=== PATIENT | male | born 1955 | race Caucasian/White ===

== ENCOUNTER 2016-09-15 17:13 | Emergency (ER) | payer OTHER ==
[2016-09-15] MEDS ORDERED: ASPIRIN 81 MG CHEWABLE TAB ONE (17:31)
--- NOTE | 2016-09-15 17:35 | CPEKG ---
Heart Rate: 49 RR Interval: 1224 P-R Interval: 188 QRSD Interval: 90 QT Interval: 452 QTC Interval: 409 P Mio: 22 QRS Mio: 15 T Wave Mio: 109 EKG Severity - OTHERWISE NORMAL ECG - EKG Impression: SINUS BRADYCARDIA Electronically Signed By: Romulo Tay 15-Sep-2016 17:46:30
--- NOTE | 2016-09-15 17:46 | UCPHY ---
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 They began at about 4:45 this evening while he was driving and lasted for about 15 minutes. He is now asymptomatic. He denies history of cardiac disease. He does not take any medications. he states that he had some mild chest pain several years ago but his primary Dr. Zuñiga felt that it was likely musculoskeletal. He has not had any fevers or recent infections. He denies shortness of breath associated with this episode tonight. No nausea, diaphoresis or vomiting. He did have some mild lightheadedness. No history of GERD, no abdominal pain. REVIEW OF SYSTEMS: Constitutional: denies: chills, fever, recent illness, recent injury EENTM: denies: blurred vision, double vision, nose congestion Respiratory: denies: cough, shortness of breath Cardiac: See HPI Gastrointestinal/Abdominal: denies: abdominal pain, diarrhea, nausea, vomiting, blood streaked stools Genitourinary: denies: dysuria, frequency, hematuria, pain Musculoskeletal: denies: joint pain, muscle pain Skin: denies: lesions, rash, jaundice, bruising Neurological: denies: headache, numbness, paresthesia, tingling, dizziness, weakness Hematologic/Lymphatic: denies: blood clots, easy bleeding, easy bruising Immunologic/allergic: denies: HIV/AIDS, transplant EXAM: GENERAL: Well-appearing, well-nourished and in no acute distress. HEAD: Atraumatic, normocephalic. EYES: Pupils equal round and reactive to light, extraocular movements intact, sclera anicteric, conjunctiva are normal. ENT: TMs normal, nares patent, oropharynx clear without exudates. Moist mucous membranes. NECK: Normal range of motion, supple without lymphadenopathy or JVD. LUNGS: Breath sounds clear to auscultation bilaterally and equal. No wheezes rales or rhonchi. HEART: Regular rate and rhythm without murmurs, rubs or gallops. ABDOMEN: Soft, nontender, normoactive bowel sounds. No guarding, no rebound. No masses appreciated. BACK: No CVA tenderness, no spinal tenderness, step-offs or deformities EXTREMITIES: Normal range of motion, no pitting or edema. No clubbing or cyanosis. NEUROLOGICAL: Cranial nerves II through XII grossly intact. Normal speech, normal gait. 5/5 strength, normal movement in all extremities, normal sensation PSYCH: Normal mood, normal affect. SKIN: Warm, dry, normal turgor, no visible rashes or lesions. Source: Patient Exam Limitations: No limitations - Medical/Surgical History Hx Asthma: No Hx Chronic Respiratory Disease: No Hx Diabetes: No Hx Cardiac Disease: No Hx Renal Disease: No Hx Cirrhosis: No Hx Alcoholism: No Other PMH: denies - Family History Significant Family History: No pertinent family hx - Social History Smoking Status: Never smoked Alcohol Use: None Drug Use: None Constitutional: Initial Vital Signs Temperature (C) 36.3 C 09/15/16 17:20 Heart Rate 50 L 09/15/16 17:20 Respiratory Rate 16 09/15/16 17:20 Blood Pressure 126/89 H 09/15/16 17:20 O2 Sat (%) 96 09/15/16 17:20 O2 Delivery Mode Room Air Allergies/Adverse Reactions: No Known Allergies Allergy (Unverified 05/29/09 21:11) Home Medications: Medication Instructions Recorded None 03/03/09 Medical Decision Making - Diagnostics Imaging Results: Imaging Impressions Chest X-Ray 09/15/16 17:43 Impression: Clear lungs. No acute process. ED Course/Re-evaluation: 7:15 p.m. the patient remains asymptomatic. His initial lab work is negative. His chest x-ray and EKG are reassuring. He did agree to stay for a 3 hour delta troponin. His heart score is 1 which puts him at a 1-2% risk of 6 week adverse major cardiac event. If the 2nd troponin is negative he will follow up with Cardiology for outpatient workup. 9:00 p.m. the patient is remains asymptomatic. His repeat troponin is negative. We discussed risks and benefits. He is eager to go home. He declines further admission or observation. He will follow up with Dr. Zuñiga and arrange a stress test within 72 hours. I also will refer her to Cardiology. We discussed indications for returning. He thinks that he may have pulled a muscle while shoveling mulch a couple of days ago. He also had upper respiratory tract infection 1 week ago this may be some residual costochondritis. He also states that he has very stressful meeting this afternoon and this may have triggered his symptoms. Differential Diagnosis: Partial list of the Differential diagnosis considered include but were not limited to; acute coronary disease, peptic ulcer disease, costochondritis, and although unlikely based on the history and physical exam, I also considered pulmonary embolism, arrhythmia, pneumothorax. I discussed these differential diagnoses and the plan with the patient as well as the usual and expected course. The patient understands that the diagnosis is provisional and that in medicine we are not always correct and that further workup is often warranted. Usual and customary warnings were given. All of the patient's questions were answered. The patient was instructed to return to the emergency department should the symptoms at all worsen or return, otherwise to followup with the physician as we discussed. - Data Points Laboratory Results: Laboratory Results 09/15/16 17:45 09/15/16 17:45 09/15/16 09/15/16 09/15/16 20:20 17:45 17:45 WBC 5.25 10^3/uL 10^3/uL (3.80-9.50) RBC 4.94 10^6/uL 10^6/uL (4.40-6.38) Hgb 16.0 g/dL g/dL (13.7-17.5) Hct 45.8 % % (40.0-51.0) MCV 92.7 fL fL (81.5-99.8) MCH 32.4 pg pg (27.9-34.1) MCHC 34.9 g/dL g/dL (32.4-36.7) RDW 13.0 % % (11.5-15.2) Plt Count 175 10^3/uL 10^3/uL (150-400) MPV 10.0 fL fL (8.7-11.7) Neut % (Auto) 32.6 % L % (39.3-74.2) Lymph % (Auto) 54.1 % H % (15.0-45.0) [place] % (Auto) 11.4 % % (4.5-13.0) Eos % (Auto) 1.1 % % (0.6-7.6) Baso % (Auto) 0.6 % % (0.3-1.7) Nucleat RBC Rel Count 0.0 % % (0.0-0.2) Absolute Neuts (auto) 1.71 10^3/uL 10^3/uL (1.70-6.50) Absolute Lymphs (auto) 2.84 10^3/uL 10^3/uL (1.00-3.00) Absolute Monos (auto) 0.60 10^3/uL 10^3/uL (0.30-0.80) Absolute Eos (auto) 0.06 10^3/uL 10^3/uL (0.03-0.40) Absolute Basos (auto) 0.03 10^3/uL 10^3/uL (0.02-0.10) Absolute Nucleated RBC 0.00 10^3/uL 10^3/uL (0-0.01) Immature Gran % 0.2 % % (0.0-1.1) Immature Gran # 0.01 10^3/uL 10^3/uL (0.00-0.10) Sodium 142 mEq/L mEq/L (134-144) Potassium 3.8 mEq/L mEq/L (3.5-5.2) Chloride 105 mEq/L mEq/L (97-110) Carbon Dioxide 22 mEq/l mEq/l (22-31) Anion Gap 15 mEq/L mEq/L (8-16) BUN 19 mg/dL mg/dL (7-23) Creatinine 1.0 mg/dL mg/dL (0.7-1.3) Estimated GFR > 60 Glucose 87 mg/dL mg/dL (70-100) Calcium 9.1 mg/dL mg/dL (8.5-10.4) Troponin I < 0.012 ng/mL ng/mL < 0.012 ng/mL ng/mL (0-0.034) (0-0.034) Departure - Departure Disposition: Home, Routine, Self-Care Clinical Impression: Chest pain Qualifiers: Chest pain type: unspecified Qualified Code(s): R07.9 - Chest pain, unspecified Condition: Fair Instructions: Chest Pain (ED) Referrals: Eduardo Zuñiga MD [Primary Care Provider] - As per Instructions Enriqueta Kemp MD [Medical Doctor] - As per Instructions - PQRS PQRS Measurement: 134: Depression screening and followup, PRIME -PHQ2 (12 years and older) Over the last 2 weeks, how often have you been bothered by any of the following problems? 1. Feeling down, depressed, or hopeless? 2. Little interest or pleasure in doing things? Patient answered no to both 1 and 2 130: Documentation of medications. Reviewed all patient medications, doses, route and frequency. 226: Do you smoke? No. 47: 65 and older: Advanced care planning. Patient designates surrogate decision maker as spouse . Patient has advanced directive. 51: 18 years old and older with diagnosis of COPD, spirometry performance. Spirometry not performed; equipment not available. 52: 18 years old and older with COPD and symptoms of COPD or FEV1<60% predicted prescribed a B Agonist. Not applicable
[2016-09-15 17:54] LABS: % IMMATURE GRANULYOCYTES 0.2 % (0.0-1.1); ABSOLUTE IMMATURE GRANULOCYTES 0.01 10^3/uL (0.00-0.10); ADD DIFF? NO; ADD MORPH? NO; ADD SCAN? NO; ATYPICAL LYMPHOCYTE FLAG 20 (0-99); FRAGMENT RBC FLAG 0 (0-99); HEMATOCRIT 45.8 % (40.0-51.0); LEFT SHIFT FLG 0 (0-99); LIPEMIA HEMOLYSIS FLAG 90 (0-99); MEAN CELL HEMOGLOBIN 32.4 pg (27.9-34.1); MEAN CELL HEMOGLOBIN CONCENTR. 34.9 g/dL (32.4-36.7); MEAN CELL VOLUME 92.7 fL (81.5-99.8); PLATELET CLUMPS FLAG 10 (0-99); PLATELET COUNT 175 10^3/uL (150-400); RED BLOOD CELL COUNT 4.94 10^6/uL (4.40-6.38)
[2016-09-15 18:08] LABS: ANION GAP 15 mEq/L (8-16); CALCIUM 9.1 mg/dL (8.5-10.4); CARBON DIOXIDE 22 mEq/l (22-31); CHLORIDE 105 mEq/L (97-110); GLOMERULAR FILTRATION RATE > 60; GLUCOSE 87 mg/dL (70-100); POTASSIUM 3.8 mEq/L (3.5-5.2); SODIUM 142 mEq/L (134-144)
[2016-09-15 18:19] LABS: TROPONIN I < 0.012 ng/mL (0-0.034)
[2016-09-15 21:15] VITALS: BP 129/85; PULSE 58; RESP 20; TEMP 98.6; O2SAT 94
== END 2016-09-15 21:12 | disposition home or self-care (01) ==
LOC: CED 17:13
DX: R07.9 Chest pain, unspecified (principal); R20.2 Paresthesia of skin
CPT/HCPCS: 71020-PO; 80048-PO; 84484-PO; 85025-PO; G0463-PO

== ENCOUNTER 2017-02-23 16:05 | Observation (INO) | payer OTHER ==
[2017-02-23] MEDS ORDERED: ASPIRIN 81 MG CHEWABLE TAB PO ONE (16:10)
[2017-02-23] MEDS ORDERED: ASPIRIN 81 MG CHEWABLE TAB ONE (16:15)
--- NOTE | 2017-02-23 16:25 | CPEKG ---
Heart Rate: 50 RR Interval: 1200 P-R Interval: 196 QRSD Interval: 96 QT Interval: 472 QTC Interval: 431 P [place]: 11 QRS [place]: 13 T Wave [place]: 123 EKG Severity - ABNORMAL ECG - EKG Impression: SINUS RHYTHM EKG Impression: NONSPECIFIC T ABNORMALITIES, LATERAL LEADS Electronically Signed By: Esteban Rosales 25-Feb-2017 11:24:53
[2017-02-23 16:26] LABS: % IMMATURE GRANULYOCYTES 0.2 % (0.0-1.1); ABSOLUTE IMMATURE GRANULOCYTES 0.01 10^3/uL (0.00-0.10); ADD DIFF? NO; ADD MORPH? NO; ADD SCAN? NO; ATYPICAL LYMPHOCYTE FLAG 0 (0-99); FRAGMENT RBC FLAG 0 (0-99); HEMATOCRIT 49.2 % (40.0-51.0); HEMOGLOBIN 17.2 g/dL (13.7-17.5); LEFT SHIFT FLG 0 (0-99); LIPEMIA HEMOLYSIS FLAG 90 (0-99); MEAN CELL HEMOGLOBIN 32.5 pg (27.9-34.1); MEAN CELL VOLUME 92.8 fL (81.5-99.8); MEAN PLATELET VOLUME 9.6 fL (8.7-11.7); PLATELET CLUMPS FLAG 0 (0-99); PLATELET COUNT 185 10^3/uL (150-400); RED CELL DISTRIBUTION WIDTH 12.8 % (11.5-15.2)
[2017-02-23 16:41] LABS: INR 1.03 (0.83-1.16); PROTIME(PATIENT) 13.2 SEC (12.0-15.0)
[2017-02-23 16:42] LABS: APTT 27.3 SEC (23.0-38.0)
[2017-02-23 16:49] LABS: ALANINE AMINOTRANSFERASE 41 IU/L (21-72); ALBUMIN 4.6 g/dL (3.5-5.0); ALKALINE PHOSPHATASE 63 IU/L (38-126); ANION GAP 14 mEq/L (8-16); ASPARTATE AMINOTRANSFERASE 22 IU/L (17-59); BILIRUBIN-CONJUGATED 0.6 mg/dL (0.0-0.5); BILIRUBIN-UNCONJUGATED 0.4 mg/dL (0.0-1.1); CALCIUM 9.4 mg/dL (8.5-10.4); CARBON DIOXIDE 23 mEq/l (22-31); CHLORIDE 106 mEq/L (97-110); CREATININE 0.9 mg/dL (0.7-1.3); GLOMERULAR FILTRATION RATE > 60; GLUCOSE 86 mg/dL (70-100); SODIUM 143 mEq/L (134-144); TOTAL PROTEIN 7.3 g/dL (6.3-8.2)
[2017-02-23 16:56] LABS: TROPONIN I < 0.012 ng/mL (0.000-0.034)
--- NOTE | 2017-02-23 17:06 | EDPHY ---
H & P Time Seen by Provider: 02/23/17 16:10 HPI/ROS: HPI Chest discomfort. 61-year-old male by private vehicle with his . This patient reports that last night he was awakened at 10:30 p.m. with what he describes as a substernal pressure and squeezing sensation. This lasted for 2 hours until about 1:00 a.m. and then resolved. He slept the rest of the night. He spoke with his primary care physician, Dr. Zuñiga, today about this discomfort. He was told to come to emergency department for evaluation. He denies any chest pain at this time he denies any history of diabetes. He is a nonsmoker. No history of hyperlipidemia. No hypertension. No significant family history for coronary artery disease. He denies any chest pain or shortness of breath at this time. ROS: Constitutional: No fever, no chills. No weakness. Eyes: No discharge. No changes in vision. ENT: No sore throat. No nasal congestion or rhinorrhea. Respiratory: No cough. No shortness of breath. Cardiac: As above, no palpitations. Gastrointestinal: No abdominal pain, no vomiting, no diarrhea. Genitourinary: No hematuria. No dysuria or increased frequency with urination. Musculoskeletal: No back pain. No neck pain. No myalgias or arthralgias. Skin: No rashes. Neurological: No headache. No focal weakness or altered sensation. Past medical history: Orthopedic surgeries. Social history: No alcohol. Nonsmoker. Here with his . Physical Exam: General Appearance: Alert, no distress. This patient is responding to questions appropriately and in full sentences. This patient appears well- hydrated and well-nourished. Eyes: Pupils equal and round no pallor or injection. No lid edema, erythema or injection. Respiratory: There are no retractions, lungs are clear to auscultation with good air movement bilaterally. Cardiovascular: Regular rate and rhythm. No murmur. Gastrointestinal: Abdomen is soft and nontender, no masses, bowel sounds normal. No focal tenderness at McBurney's point. No Barrow sign. Neurological: Motor sensory function is grossly intact. Cranial nerves are normal. Gait is normal. Skin: Warm and dry, no rashes. Musculoskeletal: Neck is supple and nontender. Extremities are symmetrical. All joints range without pain or impingement. Psychiatric: No agitation. No depression. Database: EKG: EKG time is 4:23 p.m.; EKG shows a narrow complex normal sinus rhythm with a ventricular rate of 50. The [place], QRS, QT intervals are within normal limits. There are no ST-T wave changes indicative of ischemic or injury pattern. Nonspecific T-wave abnormalities noted and lateral leads. No evidence of right heart strain. Interpreted by me. Imaging: Chest x-ray AP portable ; borderline cardiac enlargement. No evidence of infiltrate or pneumothorax. No acute cardiopulmonary disease process noted. Interpreted by me. Procedures: Emergency department course: IV placed. Patient was placed on a waste cotton cleaner. His vital signs reviewed. EKG performed and reviewed by myself. He was given 325 mg of chewed aspirin. 5:00 p.m., patient re-evaluated. He remains chest pain-free. Results of his diagnostic testing in the emergency department were discussed with him and his . Plan for admission to telemetry observation discussed with him for further testing and evaluation. He consents. 5:10 p.m., spoke with hospitalist Dr. Eubanks. Patient accepted for admission to hospitalist service telemetry. He is stable to transport by private vehicle. His will drive him to the [facility]. His remaining emergency department course under my care has been uneventful. 5:35 p.m., spoke with on-call cosmetician Dr. Enriqueta Kemp. She cannot arrange a nuclear stress test to be done in the morning. She does recommend admission. This patient was seen by his primary care physician for chest pain back in August. 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 She recommends a echocardiogram on admission to [facility] and nuclear stress test in the morning. This was relayed to admitting hospitalist . The patient was transferred in stable condition. He has been chest pain-free throughout his emergency department course. Differential Diagnosis: The differential diagnosis on this patient includes but is not limited to acute coronary syndrome, esophageal spasm, pleurisy, musculoskeletal chest pain. Pulmonary embolism, myocarditis, pericarditis, pneumonia, pneumothorax, aortic dissection unlikely. This represents a partial list of diagnoses considered. These considerations are based on history, physical exam, past history, reassessment and diagnostic testing. Smoking Status: Never smoked Constitutional: Initial Vital Signs Temperature (C) 36.5 C 02/23/17 16:10 Heart Rate 46 L 02/23/17 16:10 Respiratory Rate 18 02/23/17 16:10 Blood Pressure 159/95 H 02/23/17 16:10 O2 Sat (%) 97 02/23/17 16:10 O2 Delivery Mode Room Air Allergies/Adverse Reactions: No Known Allergies Allergy (Unverified 02/23/17 16:23) Home Medications: Medication Instructions Recorded None 03/03/09 Medical Decision Making - Diagnostics Imaging Results: Imaging Impressions Chest X-Ray 02/23/17 16:10 Impression: Stable negative chest. Borderline cardiac enlargement. - Data Points Laboratory Results: Laboratory Results 02/23/17 16:10 02/23/17 16:10 02/23/17 02/23/17 02/23/17 16:10 16:10 16:10 WBC RBC Hgb Hct MCV MCH MCHC RDW Plt Count MPV Neut % (Auto) Lymph % (Auto) [place] % (Auto) Eos % (Auto) Baso % (Auto) Nucleat RBC Rel Count Absolute Neuts (auto) Absolute Lymphs (auto) Absolute Monos (auto) Absolute Eos (auto) Absolute Basos (auto) Absolute Nucleated RBC Immature Gran % Immature Gran # PT 13.2 SEC SEC (12.0-15.0) INR 1.03 (0.83-1.16) APTT 27.3 SEC SEC (23.0-38.0) D-Dimer < 0.27 ug/mLFEU ug/mLFEU (0.00-0.50) Sodium 143 mEq/L mEq/L (134-144) Potassium 4.0 mEq/L mEq/L (3.5-5.2) Chloride 106 mEq/L mEq/L (97-110) Carbon Dioxide 23 mEq/l mEq/l (22-31) Anion Gap 14 mEq/L mEq/L (8-16) BUN 15 mg/dL mg/dL (7-23) Creatinine 0.9 mg/dL mg/dL (0.7-1.3) Estimated GFR > 60 Glucose 86 mg/dL mg/dL (70-100) Calcium 9.4 mg/dL mg/dL (8.5-10.4) Total Bilirubin 1.0 mg/dL mg/dL (0.1-1.4) Conjugated Bilirubin 0.6 mg/dL H mg/dL (0.0-0.5) Unconjugated Bilirubin 0.4 mg/dL mg/dL (0.0-1.1) AST 22 IU/L IU/L (17-59) ALT 41 IU/L IU/L (21-72) Alkaline Phosphatase 63 IU/L IU/L (38-126) Creatine Kinase 98 IU/L IU/L (0-224) CK-MB (CK-2) Fraction 0.80 ng/mL ng/mL (0.00-4.55) Troponin I < 0.012 ng/mL ng/mL (0.000-0.034) Total Protein 7.3 g/dL g/dL (6.3-8.2) Albumin 4.6 g/dL g/dL (3.5-5.0) Lipase 85 IU/L IU/L (23-300) 02/23/17 16:10 WBC 6.01 10^3/uL 10^3/uL (3.80-9.50) RBC 5.30 10^6/uL 10^6/uL (4.40-6.38) Hgb 17.2 g/dL g/dL (13.7-17.5) Hct 49.2 % % (40.0-51.0) MCV 92.8 fL fL (81.5-99.8) MCH 32.5 pg pg (27.9-34.1) MCHC 35.0 g/dL g/dL (32.4-36.7) RDW 12.8 % % (11.5-15.2) Plt Count 185 10^3/uL 10^3/uL (150-400) MPV 9.6 fL fL (8.7-11.7) Neut % (Auto) 44.4 % % (39.3-74.2) Lymph % (Auto) 43.8 % % (15.0-45.0) [place] % (Auto) 10.6 % % (4.5-13.0) Eos % (Auto) 0.7 % % (0.6-7.6) Baso % (Auto) 0.3 % % (0.3-1.7) Nucleat RBC Rel Count 0.0 % % (0.0-0.2) Absolute Neuts (auto) 2.67 10^3/uL 10^3/uL (1.70-6.50) Absolute Lymphs (auto) 2.63 10^3/uL 10^3/uL (1.00-3.00) Absolute Monos (auto) 0.64 10^3/uL 10^3/uL (0.30-0.80) Absolute Eos (auto) 0.04 10^3/uL 10^3/uL (0.03-0.40) Absolute Basos (auto) 0.02 10^3/uL 10^3/uL (0.02-0.10) Absolute Nucleated RBC 0.00 10^3/uL 10^3/uL (0-0.01) Immature Gran % 0.2 % % (0.0-1.1) Immature Gran # 0.01 10^3/uL 10^3/uL (0.00-0.10) PT INR APTT D-Dimer Sodium Potassium Chloride Carbon Dioxide Anion Gap BUN Creatinine Estimated GFR Glucose Calcium Total Bilirubin Conjugated Bilirubin Unconjugated Bilirubin AST ALT Alkaline Phosphatase Creatine Kinase CK-MB (CK-2) Fraction Troponin I Total Protein Albumin Lipase Medications Given: Discontinued Medications Aspirin (Aspirin) 324 mg PO EDNOW ONE Stop: 02/23/17 16:11 Last Admin: 02/23/17 16:28 Dose: 324 mg Departure - Departure Disposition: [facility] Clinical Impression: Chest pain
[2017-02-23] MEDS ORDERED: ONDANSETRON DISINTEGRATING 4 MG TAB PO PRN (17:54)
[2017-02-23] MEDS ORDERED: ONDANSETRON 4 MG/2 ML VIAL IVP PRN (17:54)
[2017-02-23] MEDS ORDERED: ACETAMINOPHEN 325 MG TAB PO PRN (17:54)
[2017-02-23 19:20] VITALS: O2SAT 94
--- NOTE | 2017-02-23 21:47 | PDGENHP ---
History and Physical - Chief Complaint Acute chest pain - History of Present Illness Primary care provider: Dr. Zuñiga HPI: 61-year-old male presenting with acute chest pain characterized as a squeezing tightness occurring at rest onset of symptoms at 10:30 p.m. last night induration 3 hours thereafter. The symptoms were alleviated by taking 2 aspirin, and they have not recurred since. The patient reports that he did have some associated symptoms including some pain located behind his right eye as well as polyuria earlier in the day some pain located in his left upper abdomen. All these symptoms seem to occur during the 24 hours prior to this presentation. The patient does note that on the day prior to the symptoms initiating, he had been particularly physically active, lifting any heavy boxes during home moving project. He reports that he does not usually lift heavy objects with his upper body, and he focuses most of his exercise on his lower body, cycling regularly. He has not recently noticed any sharp reduction in exercise tolerance but has noted a more gradual decline over time. History Information - Allergies/Home Medication List Allergies/Adverse Reactions: No Known Allergies Allergy (Unverified 02/23/17 16:23) Home Medications: Ibuprofen [Motrin (*)] 400 mg PO BID PRN 02/23/17 [Last Taken 02/23/17 11:00] I have personally reviewed and updated: family history, medical history, social history, surgical history - Past Medical History Additional medical history: 4.5 cm aorta. Sinus bradycardia. Cataracts. Intermittent presentations for chest pain, including 1 in 2006 when he was in [facility] as well as 1 in August 2016 [facility], felt to be secondary to costochondritis - Surgical History Additional surgical history: Hernia x2. Achilles. C3-C4 fusion. Vasectomy - Family History Additional family history: Brother with cardiac stents at age 53 - Social History Smoking Status: Never smoked Alcohol Use: Occasionally (Heavier use in the past, never experienced acute alcohol withdrawal) Drug Use: None Additional social history: Avid reader, regular bicycle rider Review of Systems Review of Systems: ROS: 10pt was reviewed & negative except for what was stated in HPI & below EENMT: Reports: eye pain Cardiac: Reports: chest pain Gastrointestinal: Reports: abdominal pain Genitourinary: Reports: frequency Physical Exam Physical Exam: Temp Pulse Resp BP Pulse Ox 36.4 C 52 L 18 138/94 H 94 02/23/17 19:15 02/23/17 19:15 02/23/17 19:15 02/23/17 19:15 02/23/17 19:15 Constitutional: no apparent distress, appears nourished, not in pain Eyes: PERRL, anicteric sclera, EOMI Ears, Nose, Mouth, Throat: moist mucous membranes, hearing normal, ears appear normal, no oral mucosal ulcers Cardiovascular: regular rate and rhythym, no murmur, rub, or gallop, No edema Respiratory: no respiratory distress, no rales or rhonchi, clear to auscultation Gastrointestinal: normoactive bowel sounds, soft, non-tender abdomen, no palpable masses Skin: other (No vesicular lesions or rashes over chest) Musculoskeletal: other (No tenderness to palpation over his anterior pectoralis muscles, no tenderness to palpation over the sternum, full range of motion of his bilateral shoulders without inducing any pain) Neurologic: AAOx3, sensation intact bilaterally, No weakness Psychiatric: interacting appropriately, not anxious, not encephalopathic, thought process linear Lab Data & Imaging Review 02/23/17 16:10 02/23/17 16:10 WBC 6.01 10^3/uL (3.80-9.50) 02/23/17 16:10 RBC 5.30 10^6/uL (4.40-6.38) 02/23/17 16:10 Hgb 17.2 g/dL (13.7-17.5) 02/23/17 16:10 Hct 49.2 % (40.0-51.0) 02/23/17 16:10 MCV 92.8 fL (81.5-99.8) 02/23/17 16:10 MCH 32.5 pg (27.9-34.1) 02/23/17 16:10 MCHC 35.0 g/dL (32.4-36.7) 02/23/17 16:10 RDW 12.8 % (11.5-15.2) 02/23/17 16:10 Plt Count 185 10^3/uL (150-400) 02/23/17 16:10 MPV 9.6 fL (8.7-11.7) 02/23/17 16:10 Neut % (Auto) 44.4 % (39.3-74.2) 02/23/17 16:10 Lymph % (Auto) 43.8 % (15.0-45.0) 02/23/17 16:10 [place] % (Auto) 10.6 % (4.5-13.0) 02/23/17 16:10 Eos % (Auto) 0.7 % (0.6-7.6) 02/23/17 16:10 Baso % (Auto) 0.3 % (0.3-1.7) 02/23/17 16:10 Nucleat RBC Rel Count 0.0 % (0.0-0.2) 02/23/17 16:10 Absolute Neuts (auto) 2.67 10^3/uL (1.70-6.50) 02/23/17 16:10 Absolute Lymphs (auto) 2.63 10^3/uL (1.00-3.00) 02/23/17 16:10 Absolute Monos (auto) 0.64 10^3/uL (0.30-0.80) 02/23/17 16:10 Absolute Eos (auto) 0.04 10^3/uL (0.03-0.40) 02/23/17 16:10 Absolute Basos (auto) 0.02 10^3/uL (0.02-0.10) 02/23/17 16:10 Absolute Nucleated RBC 0.00 10^3/uL (0-0.01) 02/23/17 16:10 Immature Gran % 0.2 % (0.0-1.1) 02/23/17 16:10 Immature Gran # 0.01 10^3/uL (0.00-0.10) 02/23/17 16:10 PT 13.2 SEC (12.0-15.0) 02/23/17 16:10 INR 1.03 (0.83-1.16) 02/23/17 16:10 APTT 27.3 SEC (23.0-38.0) 02/23/17 16:10 D-Dimer < 0.27 ug/mLFEU (0.00-0.50) 02/23/17 16:10 Sodium 143 mEq/L (134-144) 02/23/17 16:10 Potassium 4.0 mEq/L (3.5-5.2) 02/23/17 16:10 Chloride 106 mEq/L (97-110) 02/23/17 16:10 Carbon Dioxide 23 mEq/l (22-31) 02/23/17 16:10 Anion Gap 14 mEq/L (8-16) 02/23/17 16:10 BUN 15 mg/dL (7-23) 02/23/17 16:10 Creatinine 0.9 mg/dL (0.7-1.3) 02/23/17 16:10 Estimated GFR > 60 02/23/17 16:10 Glucose 86 mg/dL (70-100) 02/23/17 16:10 Calcium 9.4 mg/dL (8.5-10.4) 02/23/17 16:10 Total Bilirubin 1.0 mg/dL (0.1-1.4) 02/23/17 16:10 Conjugated Bilirubin 0.6 mg/dL (0.0-0.5) H 02/23/17 16:10 Unconjugated Bilirubin 0.4 mg/dL (0.0-1.1) 02/23/17 16:10 AST 22 IU/L (17-59) 02/23/17 16:10 ALT 41 IU/L (21-72) 02/23/17 16:10 Alkaline Phosphatase 63 IU/L (38-126) 02/23/17 16:10 Creatine Kinase 98 IU/L (0-224) 02/23/17 16:10 CK-MB (CK-2) Fraction 0.80 ng/mL (0.00-4.55) 02/23/17 16:10 Troponin I < 0.012 ng/mL (0.000-0.034) 02/23/17 16:10 Total Protein 7.3 g/dL (6.3-8.2) 02/23/17 16:10 Albumin 4.6 g/dL (3.5-5.0) 02/23/17 16:10 Lipase 85 IU/L (23-300) 02/23/17 16:10 Visualized and Interpreted Chest x-ray results: Yes Chest X-Ray results: other (Mildly enlarged cardiac silhouette) Visualized and Interpreted EKG results: Yes EKG Interpretation: Positive for: other (T-wave inversion in leads V5 and V6) Assessment & Plan Assessment: 61-year-old male presents with acute chest pain Plan: 1. Chest pain. Acute, new problem this provider, further workup indicated. Given the duration description of symptoms, cardiac risk stratification is indicated -get nuclear medicine stress test with treadmill -get echocardiogram to evaluate heart muscle function given enlarged cardiac silhouette -monitor on telemetry overnight -get D-dimer to rule out pulmonary embolism -continue on aspirin 325 -discussed with Dr. Rex Rocha at urgent care, he has reported to me that he has discussed the case with Dr. Enriqueta Kemp and she reports that they are unable to arrange immediate outpatient stress test, recommending that he be further risk stratified at [facility] -if above studies unremarkable, I suspect that the cause is costochondritis and musculoskeletal, as I have reviewed the outside records including 09/18/2016 emergency department report by Dr. Romulo Tay, reporting the patient's chest discomfort at that time seemed much more musculoskeletal in origin, recommended nonsteroidal anti-inflammatory medications, recommended outpatient stress which the patient did not perform Diet. Regular, NPO after midnight Prophylaxis. High risk patient, Lovenox 40 Code. Full Disposition. Anticipated discharge is 02/24/2017, pending further workup as outlined above.
[2017-02-24 03:49] LABS: % IMMATURE GRANULYOCYTES 0.2 % (0.0-1.1); ABSOLUTE IMMATURE GRANULOCYTES 0.01 10^3/uL (0.00-0.10); ADD DIFF? NO; ADD MORPH? NO; ADD SCAN? NO; ATYPICAL LYMPHOCYTE FLAG 0 (0-99); FRAGMENT RBC FLAG 0 (0-99); HEMATOCRIT 43.5 % (40.0-51.0); HEMOGLOBIN 15.1 g/dL (13.7-17.5); LEFT SHIFT FLG 0 (0-99); LIPEMIA HEMOLYSIS FLAG 90 (0-99); MEAN CELL HEMOGLOBIN 32.3 pg (27.9-34.1); MEAN CELL HEMOGLOBIN CONCENTR. 34.7 g/dL (32.4-36.7); MEAN CELL VOLUME 92.9 fL (81.5-99.8); PLATELET CLUMPS FLAG 0 (0-99); PLATELET COUNT 159 10^3/uL (150-400); RED BLOOD CELL COUNT 4.68 10^6/uL (4.40-6.38); RED CELL DISTRIBUTION WIDTH 12.9 % (11.5-15.2)
[2017-02-24 04:09] LABS: ALANINE AMINOTRANSFERASE 32 IU/L (21-72); ALBUMIN 3.6 g/dL (3.5-5.0); ALKALINE PHOSPHATASE 51 IU/L (38-126); ANION GAP 11 mEq/L (8-16); ASPARTATE AMINOTRANSFERASE 18 IU/L (17-59); BILIRUBIN,TOTAL 0.8 mg/dL (0.1-1.4); CARBON DIOXIDE 22 mEq/l (22-31); CHLORIDE 109 mEq/L (97-110); CHOLESTEROL 162 mg/dL (140-220); CREATININE 0.9 mg/dL (0.7-1.3); GLOMERULAR FILTRATION RATE > 60; GLUCOSE 96 mg/dL (70-100); HIGH DENSITY LIPOPROTEIN 27 mg/dL (40-65); LDL/HDL RATIO 3.85 RATIO (1.00-3.64); LOW DENSITY LIPOPROTEIN 104 mg/dL (80-100); NON-HIGH DENSITY LIPOPROTEIN 135 mg/dL (90-129); POTASSIUM 4.2 mEq/L (3.5-5.2); SODIUM 142 mEq/L (134-144); TOTAL PROTEIN 5.9 g/dL (6.3-8.2); TRIGLYCERIDE 159 mg/dL (40-150); VERY LOW DENSITY LIPOPROTEINS 31 mg/dL (8-25)
[2017-02-24 04:18] LABS: TROPONIN I < 0.012 ng/mL (0.000-0.034)
[2017-02-24 07:25] VITALS: BP 107/70; PULSE 55; RESP 14; TEMP 98.1
[2017-02-24] MEDS ORDERED: ASPIRIN EC 325 MG TAB PO SCH (09:00)
[2017-02-24] MEDS ORDERED: ENOXAPARIN 40 MG/0.4 ML SYR SC SCH (09:00)
--- NOTE | 2017-02-24 10:27 | ECHO ---
[email or web address] [address] Main: [phone] Fax: Transthoracic Echocardiogram Name: JENNIFER SALCEDO MR#: [id number] Study Date: 02/24/2017 Study Time: 07:27 AM Date of : 1955 Age: 61 year(s) Height: 180.3 cm (71 in.) Weight: 81.65 kg (180 lb.) BSA: 2.02 m2 Gender: Male Examination: Echo Indication: Chest Pain Image Quality: Contrast: Requested by: Rex Arias BP: 107 mmHg/70 mmHg Heart Rate: Rhythm: Indication: Chest Pain Procedure Staff Statue Maker: Axel Berger Reading Physician: Raghu Kitchen Requesting Provider: Conclusions: Normal size left ventricle. Borderline concentric LV hypertrophy. EF is 70 %. No regional wall motion abnormality. Grade 1 diastolic dysfunction (abnormal relaxation). There is dilatation of the ascending aorta measuring 4.1 cm. This is consistent with mild dialtion. There are no significant valvular abnormalities. Measurements: Chambers Valvular Assessment AV/MV Valvular Assessment TV/PV Normal Normal Normal Name Value Range Name Value Range Name Value Range Ao Daisy (MM): 3.6 cm (2.2 cm-3.7 AV Vmax: 1.10 m/s (1 m/s-1.7 PV Vmax: 0.87 m/s (0.6 m/s-0.9 cm) m/s) m/s) IVSd (2D): 1.0 cm (0.6 cm-1.1 AV maxP mmHg ( - ) PV PGmax: 3 mmHg ( - ) cm) LVOT Vmax: 0.95 m/s (0.7 m/s-1.1 LVDd (2D): 4.9 cm (4.2 cm-5.9 m/s) cm) MV E Vmax: 0.64 m/s ( - ) LVDs (2D): 2.9 cm (2.1 cm-4 MV A Vmax: 0.46 m/s ( - ) cm) MV E/A: 1.39 ( - ) LVPWd (2D): 1.1 cm (0.6 cm-1 cm) LVEF (2D): 70 (>=54 %) Continued Measurements: Chambers Valvular Assessment AV/MV Name Value Name Value LADs: 3.4 cm MV E' Septal: 0.04 m/s Patient: JENNIFER SALCEDO Study Date: 02/24/2017 Page 1 of 2 07:27 AM LADs Lon.3 cm MV E/E' Septal: 14.30 LA Area: 22.8 cm2 MV E/E' Lateral: 8.90 Additional Vessels Name Value Ao Ascendin.1 cm Findings: Left Ventricle: Normal size left ventricle. Borderline concentric LV hypertrophy. Normal global systolic LV function. EF is 70 %. No regional wall motion abnormality. Grade 1 diastolic dysfunction (abnormal relaxation). Right Ventricle: Normal size right ventricle. Normal RV function. Left Atrium: The left atrium is normal in size. Right Atrium: The right atrium is normal in size. Mitral Valve: The mitral valve is normal in appearance and function. Aortic Valve: The aortic valve is normal in appearance and function. The aortic valve is tri-leaflet. Tricuspid Valve: The tricuspid valve is normal in appearance and function. Pulmonic Valve: The pulmonic valve is normal in appearance. Trivial pulmonic valve regurgitation. Aorta: There is dilatation of the ascending aorta measuring 4.1 cm. This is consistent with mild dialtion. Pericardium: No pericardial effusion. (No Signature Object) Patient: JENNIFER SALCEDO Study Date: 02/24/2017 Page 2 of 2 07:27 AM [id number]
--- NOTE | 2017-02-24 11:16 | ASMTCMCOM ---
CM Note CM Note Notes: REviewed chart, spoke w/RN. No case management d/c needs identified d/t pt age and activity levels prior to admission. Case management d/c poc: Home independent w/follow up as directed by . Date Signed: 02/24/2017 11:15 AM Electronically Signed By:Kika Price RN
--- NOTE | 2017-02-24 11:59 | CPR ---
[f rep st] NONINVASIVE CARDIAC PROCEDURE REPORT DATE OF PROCEDURE: 02/24/2017 PROCEDURE PERFORMED: Exercise treadmill stress test. REASON FOR TEST: Chest discomfort. FINDINGS: Resting EKG shows a regular sinus rhythm with T-wave abnormality in inferior lateral leads . Resting blood pressure 118/90, oxygen saturation 91%. Resting heart rate 60. He is asymptomatic prior to exercise. EXERCISE PORTION: He was exercised according to the Anders protocol for a total of 10 minutes. Max m et level 10.8, max blood pressure 170/84, heart rate 154, predicted maximal heart rate. He had no ch est pain or other symptoms during exercise. He tolerated exercise well. No abnormal EKG changes. T he T-wave did return to upright during exercise. RECOVERY: He spontaneously recovered with a resting recovery blood pressure of 110/70, resting heart rate 73 at 5 minutes post exercise. He remained asymptomatic. The T-waves remained upright to isoe lectric at conclusion of recovery. At this time, he currently is stable to return to his room. /[id number]/MODL
--- NOTE | 2017-02-24 12:34 | GDS ---
[f rep st] DISCHARGE SUMMARY DISCHARGE DIAGNOSES: Include: 1. Chest pain, likely musculoskeletal. 2. History of sinus bradycardia. 3. Cataracts. HISTORY OF PRESENT ILLNESS: This is a 61-year-old male without significant medical history, who pres ents with complaints of chest pain after moving some heavy boxes. For details of patient's initial p resentation, please see the history and physical dated 02/23/2017. Consultative services were none. PROCEDURES: On 02/24/2017, patient underwent a treadmill stress testing that showed no findings cons istent with inducible ischemia. Patient reached maximum heart rate without symptoms and had excellen t recovery of both heart rate and blood pressure. HOSPITAL COURSE: Chest pain: The patient was admitted to PCU, ruled out with serial troponins, EKGs , and was taken for treadmill testing which he completed without complication. Suspicion based on th e history prior to presentation is the patient is experiencing musculoskeletal chest pain/costochondr itis. We have recommended the use of antiinflammatories and follow up with his outpatient provider. MEDICATIONS AT THE TIME OF TRANSFER: Please reference med rec printed on 02/24/2017. FOLLOWUP APPOINTMENTS: Include with his primary care provider in the next 3-4 weeks for general post disposition followup. /[id number]/MODL
--- NOTE | 2017-02-24 13:58 | ASDISCHSUM ---
Discharge Information Plan Status:Home with No Needs Medically Cleared to Leave:02/24/2017 Discharge Date:02/24/2017 12:44 PM CM D/C Disposition:Home, Routine, Self-Care ADT D/C Disposition:Home, Routine, Self-Care Projected Discharge Date:02/24/2017 12:44 PM Transportation at D/C:Family Discharge Delay Reason: Follow-Up Date:02/24/2017 12:44 PM Discharge Slot: Final Diagnosis: Placement Information Patient Contact Information Contact Name:LISSET Relationship: Address:[address] [place] [address] City:[place] Alternate Phone: State/Zip Code:[place] [address] Email: Financial Information Financial Class:HMO and PPO Plans Primary Plan Desc:[facility] Primary Plan Number:[id number] Secondary Plan Desc: Secondary Plan Number: Assessment Information [facility] CM Progress Note CM Note CM Note Notes: REviewed chart, spoke w/RN. No case management d/c needs identified d/t pt age and activity levels prior to admission. Case management d/c poc: Home independent w/follow up as directed by . Date Signed: 02/24/2017 11:15 AM Electronically Signed By:Kika Price RN Intervention Information
== END 2017-02-24 12:44 | disposition home or self-care (01) ==
LOC: CED 16:05 → CEDHOLD 17:38 → F2W 19:10
PROVIDERS: ADMIT Internal Medicine; ATTEND Internal Medicine
DX: R07.89 Other chest pain (principal); R00.1 Bradycardia, unspecified; H26.9 Unspecified cataract
CPT/HCPCS: 71010; 93005; 93017; 93306; G0378; 80048-PO; 80076-PO; 82550-PO; 82553-PO; 83690-PO; 84484-PO; 85025-PO; 85378-PO; 85610-PO; 85730-PO; J1650

== ENCOUNTER → 2017-09-29 | Outpatient (CLI) | payer OTHER ==
[~2017-09-29] MED LIST: IOPAMIDOL (ISOVUE-300) 100 ML BTL ONE
== END ==
LOC: CIMAGING 11:09
PROVIDERS: ATTEND Family Medicine
DX: K57.30 Diverticulosis of large intestine without perforation or abscess without bleeding (principal); R73.02 Impaired glucose tolerance (oral)
CPT/HCPCS: 74177-PO; Q9967

== ENCOUNTER → 2017-11-10 | Outpatient (CLI) | payer OTHER | LOC: CIMAGING 15:44 | PROVIDERS: ATTEND Family Medicine | DX: R10.9 Unspecified abdominal pain (principal) | CPT/HCPCS: 74019-PO ==